=== PATIENT | male | born 1970 | race Two or more races ===

== ENCOUNTER 2020-02-05 06:39 | Inpatient (IN) | payer MEDICAID ==
[~2020-02-05] VITALS: Ht 170.2 cm; Wt 129.0 kg
[2020-02-05] VITALS (7 sets, daily range): BP systolic 120–133; BP diastolic 72–78
--- NOTE | 2020-02-05 06:45 | NUR ---
ED Nurse Note: Recieved pt BIBA from home, here with c/o trach dislodging, pt has trach in place, was scheduled to have removed sunday, pt states awakend and it was out, pt has no s/s of any respiratory distress, 02 sat=97%b on rom air, denies pain from area, no bleeding, pt has shiley size 5.0 with him, pt has large exploratory lap wound in mid abdomen with wound vac in place,s/p hernia repair mild pain from area at 09/23, denies cp, sob, or any other complaints, pt gowned and placed on cardiac monitoring, will resume care as ordered and closely monitor, respiratory therapist called.
--- NOTE | 2020-02-05 06:52 | Emergency Room Report ---
History of Present Illness General Chief Complaint: General Complaint Source: Patient, EMS (Nicholas Pham MD) Present Illness HPI Disclaimer: Please note that this report is being documented using DRAGON technology. This can lead to erroneous entry secondary to incorrect interpretation by the dictating instrument. HPI: 49-year-old male presents for dislodged tracheostomy tube. He has a large wound VAC over his abdomen from recent surgery and states a trach was placed as he goes apneic at night. Dislodged accidentally this morning. Patient brought in a Shiley #5 for replacement but said he had a Shiley 6 at his previous facility. Denies bleeding, difficulty breathing, recent fever, chills, vomiting or other changes in his health. PMH: Reviewed PSH: Tracheostomy, large abdominal hernia repair Allergies: Reviewed Social Hx: Reviewed (Nicholas Pham MD) Allergies: Coded Allergies: No Known Allergies (Unverified , 02/05/20) COVID-19 Screening Contact w/high risk pt: No Experienced COVID-19 symptoms?: No COVID-19 Testing performed VICE PRESIDENT QUALITY ASSURANCE: No (Nicholas Pham MD) Nursing Documentation-PMH Hx Cardiac Problems: Yes - hernia removal - wound vac in place Hx Hypertension: Yes Hx Diabetes: Yes (Nicholas Pham MD) Review of Systems All Other Systems: negative except mentioned in HPI (Nicholas Pham MD) Physical Exam Vital Signs Date Time Temp Pulse Resp B/P (MAP) Pulse Ox O2 Delivery O2 Flow Rate FiO2 02/05/20 06:35 97.3 81 20 146/89 (108) 99 Room Air General: Awake and alert, no acute distress HEENT: NC/AT. EOMI. Neck: Tracheostomy site is clean, no bleeding, no subcutaneous air in the neck Cardiovascular: RRR. S1 and S2 normal. Resp: Normal work of breathing. No cough, wheezing or crackles appreciated Abdomen: Abdomen is soft, morbidly obese. Wound VAC attached. No leaking. Skin: Intact. No abrasions, laceration or rash over the exposed skin MSK: Normal tone and bulk. Moving all extremities. No obvious deformity. Neuro: Awake and alert. Mentating appropriately. (Nicholas Pham MD) Medical Decision Making Diagnostic Impression: Primary Impression: Tracheostomy mechanical complication ER Course 49-year-old male presents for evaluation of dislodged tracheostomy tube. No acute distress, breathing comfortably saturating 99% on room air. No obvious trauma to the neck. I attempted to replace tracheostomy tube but unable to pass a Shiley #5 or #6. Unable to patient's PMD regarding his overall plan for the tracheostomy. Discussed case with our surgical team who will come evaluate the patient and provide guidance. Patient signed out to oncoming provider pending surgical evaluation. (Nicholas Pham MD) ER Course This patient was turned over to me from Dr. Pham. The patient had dislodged his trach tube. He apparently uses the trach tube at nighttime for obstructive sleep apnea. Dr. Pham was unable to replace the trach bedside. The patient was pending an evaluation by Dr. De Leon of general surgery. Dr. De Leon was delayed secondary to being in a surgery. He did see the patient in the emergency department and was also unable to replace the trach tube. Therefore, the patient was admitted to the ICU for respiratory monitoring and possible surgical trach replacement. This patient required complex medical decision-making, aggressive intervention, extensive laboratory workup and monitoring. Critical care time: 40 minutes. Laboratory Tests Test 02/05/20 16:00 White Blood Count 6.8 K/UL (4.8-10.8) Red Blood Count 4.46 M/UL (4.70-6.10) L Hemoglobin 13.0 G/DL (14.2-18.0) L Hematocrit 38.8 % (42.0-52.0) L Mean Corpuscular Volume 87 FL (80-99) Mean Corpuscular Hemoglobin 29.2 PG (27.0-31.0) Mean Corpuscular Hemoglobin Concent 33.6 G/DL (32.0-36.0) Red Cell Distribution Width 14.3 % (11.6-14.8) Platelet Count 204 K/UL (150-450) Mean Platelet Volume 8.6 FL (6.5-10.1) Neutrophils (%) (Auto) 67.0 % (45.0-75.0) Lymphocytes (%) (Auto) 18.3 % (20.0-45.0) L Monocytes (%) (Auto) 8.9 % (1.0-10.0) Eosinophils (%) (Auto) 5.1 % (0.0-3.0) H Basophils (%) (Auto) 0.8 % (0.0-2.0) Prothrombin Time 11.8 SEC (9.30-11.50) H Prothrombin Time INR 1.1 (0.9-1.1) Sodium Level 139 MMOL/L (136-145) Potassium Level 3.2 MMOL/L (3.5-5.1) L Chloride Level 101 MMOL/L (98-107) Carbon Dioxide Level 33 MMOL/L (21-32) H Anion Gap 5 mmol/L (5-15) Blood Urea Nitrogen 9 mg/dL (7-18) Creatinine 1.0 MG/DL (0.55-1.30) Estimated Glomerular Filtration Rate > 60 mL/min (>60) Glucose Level 103 MG/DL (74-106) Calcium Level 9.7 MG/DL (8.5-10.1) ([facility]. ) Last Vital Signs Date Time Temp Pulse Resp B/P (MAP) Pulse Ox O2 Delivery O2 Flow Rate FiO2 02/05/20 06:35 97.3 81 20 146/89 (108) 99 Room Air (Nicholas Pham MD) Nicholas Pham MD Feb 05, 2020 06:52 [facility]. Feb 05, 2020 18:46
--- NOTE | 2020-02-05 07:33 | NUR ---
HAND-OFF: Report given to JULIANA Florentino.
--- NOTE | 2020-02-05 11:29 | NUR ---
ED Nurse Note: [facility] number [phone]
[2020-02-05] MEDS ORDERED: METFORMIN HCL500 M1 ORAL (11:50)
[2020-02-05] MEDS ORDERED: HYDROCHLOROTH12.5 MG ORAL (11:50)
[2020-02-05] MEDS ORDERED: FAMOTIDINE20 MG ORAL (11:50)
[2020-02-05] MEDS ORDERED: AMLODIPINE BESYL5 MG ORAL (11:53)
[2020-02-05] MEDS ORDERED: DOCUSATE SODIU100 MG ORAL (11:53)
[2020-02-05] MEDS ORDERED: ACETAMINOPHEN325 M1 ORAL (11:53)
[2020-02-05] MEDS ORDERED: DULOXETINE HCL30 MG PO (11:53)
--- NOTE | 2020-02-05 13:49 | NUR ---
ED Nurse Note: Pt alert and ox4, ambulatory. No acute distress. Waiting for surgeon. Will cont to monitor.
--- NOTE | 2020-02-05 15:30 | NUR ---
ED Nurse Note: IV established and blood sent to lab.
[2020-02-05 16:16] LABS: BASOPHILS % (AUTO) 0.8 % (0.0-2.0); EOSINOPHILS % (AUTO) 5.1 % (0.0-3.0); HEMATOCRIT 38.8 % (42.0-52.0); LYMPHOCYTES % (AUTO) 18.3 % (20.0-45.0); MEAN CORPUSCULAR VOLUME 87 FL (80-99); MONOCYTES % (AUTO) 8.9 % (1.0-10.0); PLATELET COUNT 204 K/UL (150-450); RED BLOOD COUNT 4.46 M/UL (4.70-6.10); RED CELL DISTRIBUTION WIDTH 14.3 % (11.6-14.8); WHITE BLOOD COUNT 6.8 K/UL (4.8-10.8)
[2020-02-05 16:18] LABS: INR 1.1 (0.9-1.1)
[2020-02-05 16:22] LABS: ANION GAP 5 mmol/L (5-15); BLOOD UREA NITROGEN 9 mg/dL (7-18); CALCIUM 9.7 MG/DL (8.5-10.1); CARBON DIOXIDE 33 MMOL/L (21-32); CHLORIDE 101 MMOL/L (98-107); POTASSIUM 3.2 MMOL/L (3.5-5.1); SODIUM 139 MMOL/L (136-145)
[2020-02-05] MEDS ORDERED: Albuterol ud Inhalation HHN PRN (18:15)
[2020-02-05] MEDS ORDERED: Albuterol/Ipratropium 3ml neb HHN PRN (18:15)
[2020-02-05] MEDS ORDERED: Ipratropium 0.02% Inh Soln 2.5ml UD HHN PRN (18:15)
[2020-02-05] MEDS ORDERED: Mylanta II UD 30ml ORAL PRN (18:15)
[2020-02-05] MEDS ORDERED: Morphine Sulfate 2mg/ml Inj(IV/IM USE ONLY) IVP PRN (18:15)
[2020-02-05] MEDS ORDERED: LORazepam Inj 2mg/ml 1ml IV PRN (18:15)
--- NOTE | 2020-02-05 19:26 | NUR ---
HAND-OFF: Report given to Jonathon cody
--- NOTE | 2020-02-05 19:30 | NUR ---
ED Nurse Note: received patient from shailesh nickerson. patient resting inbed with no acute distress. reattached to monitor; vitals stable to baseline. discussed plan of care with patient; aware of pending admission.
--- NOTE | 2020-02-05 19:51 | NUR ---
ED Nurse Note: report given to sudheer nickerson. patient to be admitted to sdu 235 under the care of charis schmitz
--- NOTE | 2020-02-05 20:16 | History & Physical ---
History and Physical History & Physicial Johny Hopper MD Feb 05, 2020 20:16
--- NOTE | 2020-02-05 20:20 | NUR ---
TRANSFER TO FLOOR: Patient transferred to sdu 235-2 as ordered, per charis schmitz. Report given to sudheer nickerson. patient stable for transport. transferred to unit via gurney with rn and matthew. belongings and admission packet sent with patient.
--- NOTE | 2020-02-05 20:20 | NUR ---
NURSE NOTES: Received report from Jonathon Ackerman ED RN. Pt is transferred via gurney. Pt is alert and oriented x 4, japanese speaking, not in distress, denies pain. Peripheral IV 20G in right AC is patent and intact. Surgical wound is noted in midline abdomen and attached to wound vac. Pt is in room air and saturating 92% and higher. Vitals are stable. Bed is locked and in lowest position, bed alarm on , call light is within reach. Will continue to monitor the patient. Will continue with the plan of care.
--- NOTE | 2020-02-05 20:40 | NUR ---
NURSE NOTES: Dr Hopper made bedside rounds. Admitting orders are given to nurses. Will continue with the plan of care.
[2020-02-05] MEDS: D5 1/2NS w/KCl 20mEq 1,000 ML IV SCH (21:52)
[2020-02-05] MEDS: Heparin 5000 units/ml inj SUBQ SCH (22:06)
[2020-02-05] MEDS: DULoxetine 30mg cap ORAL SCH (22:07)
--- NOTE | 2020-02-05 22:30 | NUR ---
NURSE NOTES: Done giving pt's evening medication. Full body assessment done. Pt is tolerating room air saturating at 93% to 96%. Pt is resting comfortably in bed watching tv. Will continue to monitor pt.
--- NOTE | 2020-02-05 22:32 | Consultation ---
History of Present Illness General Date patient seen: Feb 05, 2020 Reason for Hospitalization: General Complaint Present Illness HPI 49-year-old male presents for dislodged tracheostomy tube. He has a large wound VAC over his abdomen from recent surgery and states a trach was placed as he goes apneic at night. Dislodged accidentally this morning and came to [facility] ED for evaluation. Patient brought in a Shiley #5 for replacement but said he had a Shiley 6 at his previous facility. Denies bleeding, difficulty breathing, recent fever, chills, vomiting or other changes in his health. prior large complex abd surgery for hernia now with VAC in place. states goes to clinic for changes and has home health come help him with vac. was planned for change today but missed his appointment Allergies: Coded Allergies: No Known Allergies (Unverified , 02/05/20) COVID-19 Screening Contact w/high risk pt: No Experienced COVID-19 symptoms?: No Medication History Scheduled Amlodipine Besylate* (Amlodipine Besylate*), 5 MG ORAL DAILY, (Reported) Docusate Sodium* (Docusate Sodium*), 100 MG ORAL TWICE A DAY, (Reported) Duloxetine HCl (Duloxetine HCl*), 50 MG PO DAILY, (Reported) Famotidine* (Pepcid 20mg tablet*), 20 MG ORAL DAILY, (Reported) Hydrochlorothiazide* (Hydrochlorothiazide*), 12.5 MG ORAL DAILY, (Reported) Metformin Hcl* (Metformin Hcl*), 500 MG ORAL TWICE A DAY, (Reported) Scheduled PRN Acetaminophen* (Acetaminophen 325MG Tablet*), 650 MG ORAL Q4H PRN for Pain Scale (3-5), (Reported) Patient History History Provided By: Patient Healthcare decision maker N Resuscitation status Advanced Directive on File Past Medical/Surgical History Past Medical/Surgical History: (1) Tracheostomy mechanical complication Review of Systems Review of Symptoms General ROS: no weight loss or fever Psychological ROS: no depression or mood changes, no memory loss Ophthalmic ROS: no visual changes or eye irritation ENT ROS: no nasal congestion, hearing loss, dizziness Allergy and Immunology ROS: no allergic symptoms or urticaria Hematological and Lymphatic ROS: no swollen glands, unusual bleeding or bruising Endocrine ROS: no polyuria, polydipsia, weight changes, temperature intolerance Respiratory ROS: no cough, shortness of breath, or wheezing Cardiovascular ROS: no chest pain or dyspnea on exertion Gastrointestinal ROS: denies abdominal pain, bright red blood in stool. Musculoskeletal ROS: no myalgias or arthralgias Neurological ROS: no TIA or stroke symptoms Dermatological ROS: no new or changing skin lesions, rashes or pruritis Physical Exam Physical Exam General appearance: alert, cooperative, no distress, appears stated age Head: Normocephalic, without obvious abnormality, atraumatic Eyes: conjunctivae/corneas clear. PERRL, EOM's intact. Fundi benign Throat: Lips, mucosa, and tongue normal. Teeth and gums normal Neck: supple, symmetrical, trachea midline, no adenopathy, thyroid: not enlarged, symmetric, no tenderness/mass/nodules, no carotid bruit and no JVD. trach site with granulation tissue Lungs: clear to auscultation bilaterally Heart: regular rate and rhythm, S1, S2 normal, no murmur, click, rub or gallop Abdomen: soft, non-tender. Bowel sounds normal. No masses, no organomegaly. large midline wound with vac Extremities: extremities normal, atraumatic, no cyanosis or edema Pulses: 2+ and symmetric Skin: Skin color, texture, turgor normal. No rashes or lesions Neurologic: Grossly normal Last 24 Hour Vital Signs Date Time Temp Pulse Resp B/P (MAP) Pulse Ox O2 Delivery O2 Flow Rate FiO2 02/05/20 20:20 97.3 95 16 120/75 99 Trach Collar 02/05/20 19:42 97.3 95 16 120/75 99 Trach Collar 02/05/20 18:06 97.3 76 16 124/78 99 Room Air 02/05/20 16:00 97.3 74 17 125/72 97 Room Air 02/05/20 13:52 97.3 73 16 128/73 98 Room Air 02/05/20 11:30 97.3 78 17 125/78 99 Room Air 02/05/20 09:11 97.3 83 18 129/74 97 Room Air 02/05/20 07:15 97.3 80 16 133/76 99 Room Air 02/05/20 06:45 81 20 Room Air 02/05/20 06:35 97.3 81 20 146/89 (108) 99 Room Air Laboratory Tests Test 02/05/20 16:00 White Blood Count 6.8 K/UL (4.8-10.8) Red Blood Count 4.46 M/UL (4.70-6.10) L Hemoglobin 13.0 G/DL (14.2-18.0) L Hematocrit 38.8 % (42.0-52.0) L Mean Corpuscular Volume 87 FL (80-99) Mean Corpuscular Hemoglobin 29.2 PG (27.0-31.0) Mean Corpuscular Hemoglobin Concent 33.6 G/DL (32.0-36.0) Red Cell Distribution Width 14.3 % (11.6-14.8) Platelet Count 204 K/UL (150-450) Mean Platelet Volume 8.6 FL (6.5-10.1) Neutrophils (%) (Auto) 67.0 % (45.0-75.0) Lymphocytes (%) (Auto) 18.3 % (20.0-45.0) L Monocytes (%) (Auto) 8.9 % (1.0-10.0) Eosinophils (%) (Auto) 5.1 % (0.0-3.0) H Basophils (%) (Auto) 0.8 % (0.0-2.0) Prothrombin Time 11.8 SEC (9.30-11.50) H Prothromb Time International Ratio 1.1 (0.9-1.1) Sodium Level 139 MMOL/L (136-145) Potassium Level 3.2 MMOL/L (3.5-5.1) L Chloride Level 101 MMOL/L (98-107) Carbon Dioxide Level 33 MMOL/L (21-32) H Anion Gap 5 mmol/L (5-15) Blood Urea Nitrogen 9 mg/dL (7-18) Creatinine 1.0 MG/DL (0.55-1.30) Estimat Glomerular Filtration Rate > 60 mL/min (>60) Glucose Level 103 MG/DL (74-106) Calcium Level 9.7 MG/DL (8.5-10.1) Microbiology Date/Time Source Procedure Growth Status 02/05/20 18:15 Rectum Received 02/05/20 18:15 Nasopharynx SARS-CoV-2 RdRp Gene Assay - Final Complete Height (Feet): 5 Height (Inches): 7.00 Weight (Pounds): 220 Medications Current Medications Medications (Trade) Dose Ordered Sig/Nick Route PRN Reason Start Time Stop Time Status Last Admin Dose Admin Acetaminophen (Tylenol) 650 mg Q4H PRN ORAL Temp >100.5 02/05/20 18:15 03/06/20 18:14 Al Hydroxide/Mg Hydroxide (Mylanta II) 30 ml Q6H PRN ORAL dyspepsia 02/05/20 18:15 03/06/20 18:14 Albuterol/ Ipratropium (Albuterol/ Ipratropium) 3 ml Q6H PRN HHN Shortness of Breath 02/05/20 18:15 02/10/20 18:14 Dextrose (Dextrose 50%) 25 ml Q30M PRN IV Hypoglycemia 02/05/20 18:15 05/05/20 18:14 Dextrose (Dextrose 50%) 50 ml Q30M PRN IV Hypoglycemia 02/05/20 18:15 05/05/20 18:14 Dextrose/ Electrolytes 1,000 ml @ 125 mls/hr Q8H IV 02/05/20 21:00 03/06/20 20:59 02/05/20 21:52 Diphenhydramine HCl (Benadryl) 25 mg Q6H PRN ORAL Itching/Pruritis 02/05/20 18:15 03/06/20 18:14 Duloxetine HCl (Cymbalta) 60 mg DAILY ORAL 02/05/20 22:00 05/06/20 08:59 02/05/20 22:07 Heparin Sodium (Porcine) (Heparin 5000 units/ml) 5,000 units EVERY 8 HOURS SUBQ 02/05/20 22:00 03/21/20 21:59 02/05/20 22:06 Hydrochlorothiazide (Hydrodiuril) 12.5 mg DAILY ORAL 02/06/20 09:00 03/07/20 08:59 Lorazepam (Ativan 2mg/ml 1ml) 0.5 mg Q4H PRN IV For Anxiety 02/05/20 18:15 02/12/20 18:14 Metformin HCl (Glucophage) 500 mg TWICE A DAY ORAL 02/06/20 09:00 03/07/20 08:59 Morphine Sulfate (Morphine Sulfate) 2 mg Q4H PRN IVP Moderate Pain (Pain Scale 4-6) 02/05/20 18:15 02/12/20 18:14 Ondansetron HCl (Zofran) 4 mg Q6H PRN IVP Nausea & Vomiting 02/05/20 18:15 03/06/20 18:14 Pantoprazole (Protonix) 40 mg DAILY IV 02/06/20 09:00 03/07/20 08:59 Assessment/Plan Problem List: (1) Tracheostomy mechanical complication Assessment & Plan: unable to safely place new trach at bedside in ED. too much resistance. lots of granulation tissue noted patient comfortable without respiratory compromise was told prior will plan for trach removal at some point but not sure when admit for monitoring plan vac change or dressings tomorrow may consider trach but not sure if needed given patient stable monitor overnight under observation thank you ICD Codes: J95.03 - Malfunction of tracheostomy stoma SNOMED: [id number], [id number] Jian De Leon Feb 05, 2020 22:32
[2020-02-06] VITALS: BP 129/80
--- NOTE | 2020-02-06 | NUR ---
NURSE NOTES: Pt sleeping in the bed. No acute distress noted at this time. Pt tolerating room air, saturating at 90-99%. Will continue to monitor.
--- NOTE | 2020-02-06 02:45 | History and Physical Report ---
DATE OF ADMISSION: 02/05/2020 CHIEF COMPLAINT: Tracheostomy tube dislodged. HISTORY OF PRESENT ILLNESS: This is a 49-year-old gentleman with past medical history significant for diabetes type 2, hypertension, abdominal surgery due to the large abdominal hernia repair, followed by the tracheostomy for treatment of obstructive sleep apnea, who presented to the emergency room after he had the tracheostomy tube dislodged. The patient had a large wound VAC in his abdominal area after repair of abdominal surgery, status post trach was placed and subsequently accidentally he dislodged the trach today in the morning. Shiley 5 for replacement, but said that he had a Shiley 6 at previous facility. He denies any bleeding. Denies any fever, chills, nausea, vomiting, or diarrhea. Shortly after initial evaluation, the patient was admitted to the hospital with tracheostomy tube dislodged. PAST MEDICAL HISTORY AND PAST SURGICAL HISTORY: As above. History of diabetes type 2, hypertension, tracheostomy due to obstructive sleep apnea, abdominal surgery for a ventral hernia repair on November 22, 2019, morbid obesity, status post a wound VAC. MEDICATIONS AT HOME: Refer to medication reconciliation. ALLERGIES: No known drug allergies. SOCIAL HISTORY: Denies any smoking, alcohol, or drugs. FAMILY HISTORY: Noncontributory. REVIEW OF SYSTEMS: Mostly as above. PHYSICAL EXAMINATION: VITAL SIGNS: On admission, temperature 97.3, pulse of 81, respirations 20, and blood pressure 146/89. GENERAL: The patient awake, responsive, in no acute distress. HEAD AND NECK: Pupils are reactive to light. Extraocular movements are intact. NECK: Supple. Tracheostomy site is intact. Tracheostomy was removed and site is clean without any discharge or bleeding. LUNGS: Clear. No wheeze, rhonchi, or rales. HEART: S1, S2. Regular rhythm. No murmur or gallops. Distant heart sounds. ABDOMEN: Soft, nondistended, nontender. Morbidly obese. Midline incision was noted due to the wound VAC. EXTREMITIES: No cyanosis, clubbing, or edema. NEUROLOGIC: Cranial nerves II through XII grossly intact. Motor is 5/5 in all extremities. Gait is intact. RECTAL AND GENITOURINARY: Refused and deferred. PSYCHIATRIC: Mood and affect is intact. LABORATORY DATA: Laboratory on admission from the emergency department, WBC of 6.8, hemoglobin 13, hematocrit 38, platelets is 204. Sodium 139, potassium 3.2, chloride 101, bicarb 33, BUN is 9, creatinine 1.0, GFR is greater than 60, glucose is 103, calcium is 9.7. PT of 11, PTT of 1.1. COVID-19 test is negative. ASSESSMENT: 1. Tracheostomy tube dislodged. 2. History of tracheostomy due to the sleep apnea. 3. Hypertension. 4. Diabetes type 2. 5. History of abdominal wall hernia repair, complicated with healing process of the wound, status post wound VAC. PLAN: Admit the patient to PCU. We will follow up with Dr. De Leon's consultation from Surgery. At this time, we will monitor patient for apnea episode. The patient has not been in any distress, actively talking without any complication. We will resume home medication. Monitor blood glucose levels. Code status is full code. DVT prophylaxis with a heparin subcutaneous. Johny Hopper M.D. DR: MURALI/ARIELLA JOB#: [id number] CC: JACKELINE
--- NOTE | 2020-02-06 03:00 | NUR ---
NURSE NOTES: Pt is asleep, snoring and laying flat in bed. Noted O2 saturation down at 85%, nonsustained, goes back up to 90-98%. Will continue to monitor the pt.
[2020-02-06 04:00] VITALS: BP 134/82
[2020-02-06 04:51] LABS: BASOPHILS % (AUTO) 1.1 % (0.0-2.0); HEMATOCRIT 41.5 % (42.0-52.0); HEMOGLOBIN 13.5 G/DL (14.2-18.0); LYMPHOCYTES % (AUTO) 22.4 % (20.0-45.0); MEAN CORPUSCULAR VOLUME 89 FL (80-99); MONOCYTES % (AUTO) 8.3 % (1.0-10.0); NEUTROPHILS % (AUTO) 63.2 % (45.0-75.0); PLATELET COUNT 214 K/UL (150-450); RED BLOOD COUNT 4.69 M/UL (4.70-6.10); RED CELL DISTRIBUTION WIDTH 14.5 % (11.6-14.8); WHITE BLOOD COUNT 7.2 K/UL (4.8-10.8)
[2020-02-06] MEDS: D5 1/2NS w/KCl 20mEq 1,000 ML IV SCH (05:10)
[2020-02-06 05:27] LABS: ALANINE AMINOTRANSFERASE 54 U/L (12-78); ALBUMIN 3.2 G/DL (3.4-5.0); ALBUMIN/GLOBULIN RATIO 0.9 (1.0-2.7); ALKALINE PHOSPHATASE 66 U/L (46-116); ANION GAP 9 mmol/L (5-15); ASPARTATE AMINO TRANSFERASE 39 U/L (15-37); BILIRUBIN,TOTAL 0.4 MG/DL (0.2-1.0); BLOOD UREA NITROGEN 9 mg/dL (7-18); CALCIUM 9.5 MG/DL (8.5-10.1); CARBON DIOXIDE 29 MMOL/L (21-32); CHLORIDE 101 MMOL/L (98-107); CREATININE 0.9 MG/DL (0.55-1.30); SODIUM 139 MMOL/L (136-145)
[2020-02-06] MEDS: Heparin 5000 units/ml inj SUBQ SCH ×3 (05:33→14:00)
--- NOTE | 2020-02-06 05:42 | NUR ---
NURSE NOTES: pt refused med, risks and benefits explained, still refused, med bottle and syringe disposed, witnessed by RN. Will continue to monitor.
[2020-02-06 05:46] LABS: PHOSPHORUS 4.4 MG/DL (2.5-4.9)
--- NOTE | 2020-02-06 07:30 | NUR ---
NURSE NOTES: Received pt from RN Cuco/Sherrie. pt is awake and alert, pt is in RA, no SOB or acute respiratory distress noted. pt is on continues heart monitoring. pt has intact iv access RAC 20G is running well. no complain of pain at this moment. Dr Hopper called and ordered to keep pt NPO and ordered KCL 40 PO once due to K 3, noted and carried out. all needs attended, bed is locked and is in the lowest position. call light within easy reach. will continue to monitor.
--- NOTE | 2020-02-06 07:32 | NUR ---
NURSE HAND-OFF REPORT: Important Events on Shift:new admission Patient Status: stable, full code Diet: consistent carb diet (low) Pending Orders: none Pending Results/Labs:none Pending MD notification:none Latest Vital Signs: Temperature 98.1 , Pulse 76 , B/P 134 /82 , Respiratory Rate 20 , O2 SAT 98 , Room Air, O2 Flow Rate . Vital Sign Comment: stable EKG Rhythm: Sinus Rhythm Rhythm change?: N MD Notified?: - MD Response: Latest Monroe Fall Score: 0 Fall Risk: Low Risk Safety Measures: Call light Within Reach, Bed Alarm Zone 1, Side Rails Side Rails x2, Bed position Low and Locked. Fall Precautions: Yellow Socks Report given to JULIANA Pinto.
[2020-02-06 08:00] VITALS: BP 125/89
--- NOTE | 2020-02-06 08:02 | NUR ---
NURSE NOTES: left a message to dr teixeira regarding patients diet order, patient stated that he is hungry. awaiting callback and new order.
--- NOTE | 2020-02-06 08:53 | NUR ---
CASE MANAGEMENT: INITIAL REVIEW 02/05/2020 49 YO M BIBA FROM HOME CC:DISLODGE TRACH PMHx: WOUND VAC TO ABDOMEN- HERNIA REMOVAL SI:TRACH TUBE DISLODGED. IS: DUONEB HHN X1 DEXTROSE BOLUS IV X1 PATIENT ADMITTED TO SDU 02/05/2020 @ 1837 DCP: HOME PLAN OF CARE: Monitor blood glucose levels consultation from Surgery CONCURRENT REVIEW FOR 02/06/2020 SI:Tracheostomy mechanical complication VS: T 97.7 HR 84 RR 18 B/P 125/89 SATS 100% ON RA LABS: K 3 AST 39 IS:NS @ 75 ML/HR GLUCOPHAGE PO BID PROTONIX IV QD HCTZ PO QD CYMBALTA PO QD KDUR PO X1 SDU DCP: HOME PLAN OF CARE PER SURGERY NPO MONITOR RESP STATUS unable to safely place new trach at bedside in ED. too much resistance. lots of granulation tissue noted patient comfortable without respiratory compromise was told prior will plan for trach removal at some point but not sure when plan vac change or dressings tomorrow may consider trach but not sure if needed given patient stable
[2020-02-06] MEDS ORDERED: Pantoprazole Inj IV SCH (09:00)
[2020-02-06] MEDS ORDERED: hydroCHLOROthiazide 12.5mg TAB ORAL SCH (09:00)
[2020-02-06] MEDS ORDERED: metFORMIN 500mg tab ORAL SCH (09:00)
[2020-02-06] MEDS ORDERED: DULoxetine 30mg cap ORAL SCH (09:00)
[2020-02-06] MEDS: DULoxetine 30mg cap ORAL SCH (09:35)
[2020-02-06] MEDS ORDERED: 1/2NS w/KCl 20mEq 1000ml 1,000 ML IV SCH (10:00)
--- NOTE | 2020-02-06 10:21 | Surgery Progress Note ---
Surgery Progress Note Subjective Symptoms: improved Additional Comments slept well no respiratory issues no n/v/f/c. labs okay had long discussion with patient at bedside. offer trach reinsertion but patient declined. states he has been okay without it and that he has BIPAP at home. he prefers to cont to resume his BIPAP rather than have a trach in place at this point. will plan vac change today resume diet d/c planning for today f/u with outpatient clinic he regularly goes to and home health for wound vac Objective Last 24 Hour Vital Signs Date Time Temp Pulse Resp B/P (MAP) Pulse Ox O2 Delivery O2 Flow Rate FiO2 02/06/20 08:00 97.7 84 18 125/89 (101) 100 02/06/20 07:49 92 02/06/20 04:00 Room Air 02/06/20 04:00 98.1 82 20 134/82 (99) 98 02/06/20 04:00 76 02/06/20 00:00 81 02/06/20 00:00 98.6 89 20 129/80 (96) 95 02/06/20 00:00 Room Air 02/05/20 20:58 Room Air 02/05/20 20:20 97.3 95 16 120/75 99 Trach Collar 02/05/20 19:42 97.3 95 16 120/75 99 Trach Collar 02/05/20 18:06 97.3 76 16 124/78 99 Room Air 02/05/20 16:00 97.3 74 17 125/72 97 Room Air 02/05/20 13:52 97.3 73 16 128/73 98 Room Air 02/05/20 11:30 97.3 78 17 125/78 99 Room Air I&O Intake and Output 02/05/20 02/06/20 19:00 07:00 Intake Total 0 ml 1266.667 ml Balance 0 ml 1266.667 ml Intake Oral 0 ml IV Total 1016.667 ml Other 250 ml # Voids 3 Dressing: dry Wound: clean Drains: wound vac Cardiovascular: RSR Respiratory: clear Abdomen: soft, non-tender, present bowel sounds, non-distended Extremities: no edema, no tenderness, no cyanosis Laboratory Tests Test 02/05/20 16:00 02/06/20 03:20 White Blood Count 6.8 K/UL (4.8-10.8) 7.2 K/UL (4.8-10.8) Red Blood Count 4.46 M/UL (4.70-6.10) L 4.69 M/UL (4.70-6.10) L Hemoglobin 13.0 G/DL (14.2-18.0) L 13.5 G/DL (14.2-18.0) L Hematocrit 38.8 % (42.0-52.0) L 41.5 % (42.0-52.0) L Mean Corpuscular Volume 87 FL (80-99) 89 FL (80-99) Mean Corpuscular Hemoglobin 29.2 PG (27.0-31.0) 28.7 PG (27.0-31.0) Mean Corpuscular Hemoglobin Concent 33.6 G/DL (32.0-36.0) 32.5 G/DL (32.0-36.0) Red Cell Distribution Width 14.3 % (11.6-14.8) 14.5 % (11.6-14.8) Platelet Count 204 K/UL (150-450) 214 K/UL (150-450) Mean Platelet Volume 8.6 FL (6.5-10.1) 9.3 FL (6.5-10.1) Neutrophils (%) (Auto) 67.0 % (45.0-75.0) 63.2 % (45.0-75.0) Lymphocytes (%) (Auto) 18.3 % (20.0-45.0) L 22.4 % (20.0-45.0) Monocytes (%) (Auto) 8.9 % (1.0-10.0) 8.3 % (1.0-10.0) Eosinophils (%) (Auto) 5.1 % (0.0-3.0) H 5.0 % (0.0-3.0) H Basophils (%) (Auto) 0.8 % (0.0-2.0) 1.1 % (0.0-2.0) Prothrombin Time 11.8 SEC (9.30-11.50) H Prothromb Time International Ratio 1.1 (0.9-1.1) Sodium Level 139 MMOL/L (136-145) 139 MMOL/L (136-145) Potassium Level 3.2 MMOL/L (3.5-5.1) L 3.0 MMOL/L (3.5-5.1) L Chloride Level 101 MMOL/L (98-107) 101 MMOL/L (98-107) Carbon Dioxide Level 33 MMOL/L (21-32) H 29 MMOL/L (21-32) Anion Gap 5 mmol/L (5-15) 9 mmol/L (5-15) Blood Urea Nitrogen 9 mg/dL (7-18) 9 mg/dL (7-18) Creatinine 1.0 MG/DL (0.55-1.30) 0.9 MG/DL (0.55-1.30) Estimat Glomerular Filtration Rate > 60 mL/min (>60) > 60 mL/min (>60) Glucose Level 103 MG/DL (74-106) 99 MG/DL (74-106) Calcium Level 9.7 MG/DL (8.5-10.1) 9.5 MG/DL (8.5-10.1) Phosphorus Level 4.4 MG/DL (2.5-4.9) Magnesium Level 1.8 MG/DL (1.8-2.4) Total Bilirubin 0.4 MG/DL (0.2-1.0) Aspartate Amino Transf (AST/SGOT) 39 U/L (15-37) H Alanine Aminotransferase (ALT/SGPT) 54 U/L (12-78) Alkaline Phosphatase 66 U/L (46-116) Total Protein 6.6 G/DL (6.4-8.2) Albumin 3.2 G/DL (3.4-5.0) L Globulin 3.4 g/dL Albumin/Globulin Ratio 0.9 (1.0-2.7) L Plan Problems: (1) Tracheostomy mechanical complication Assessment & Plan: unable to safely place new trach at bedside in ED. too much resistance. lots of granulation tissue noted patient comfortable without respiratory compromise was told prior will plan for trach removal at some point but not sure when admit for monitoring plan vac change or dressings tomorrow may consider trach but not sure if needed given patient stable monitor overnight under observation thank you had long discussion with patient at bedside. offer trach reinsertion but patient declined. states he has been okay without it and that he has BIPAP at home. he prefers to cont to resume his BIPAP rather than have a trach in place at this point. will plan vac change today resume diet d/c planning for today f/u with outpatient clinic he regularly goes to and home health for wound vac Jian De Leon Feb 06, 2020 10:21
--- NOTE | 2020-02-06 11:03 | NUR ---
NURSE NOTES: Dr De Leon visited pt and did change dressing for wound vac and trach, pt tolerated well. no bleeding or pain noted. MD ordered to D/C iv fluid, noted and carried out. will continue to monitor.
--- NOTE | 2020-02-06 11:26 | Operative Note - PDOC ---
Operative Note Operative Note Date of Operation/Procedure: Feb 06, 2020 Pre-op Diagnosis: Midline abdominal wound surgical incisional Procedure: Wound VAC change midline surgical wound abdominal Post-op Diagnosis: same as pre-op Surgeon: Jian De Leon MD Specimen: none Complications: none Condition: stable Estimated Blood Loss: none Drains: wound vac Implant(s) used?: No Description of Procedure Patient was made comfortable the bedside in supine position. Wound VAC was shut off. The prior dressings were removed. The wound was evaluated. There is a midline incisional wound site 15 cm in length. The superior and inferior portions of the wound is healed well but the midportion has an open area. There is some necrotic tissue identified as well as granulation tissue. About 90% of the wound has granulation tissue there is a small portion with necrotic tissue with the consent and the patient surgical scissors and forceps were used and a 1 cm x 1 cm area of nonviable necrotic eschar was excised underlying tissue was cleaned with gauze and ready for VAC placement the remainder of the tissue almost 500 for granulation. The incision inferior aspect proximal 5 cm is almost well-healed only 1 cm or less of granulation tissue healing and on the superior portion about 5 to 6 cm in a similar fashion. The midportion of the wound that is approximately 4 to 5 cm x 45 cm x 1 cm deep there is granulation tissue forming in the small area of eschar that was debrided. Wound was cleansed and borders were protected with the VAC tape. Following this Xeroform was placed on the inferior and superior edges followed by black foam on the midportion and on top of Xeroform for the other portions. VAC dressings were applied VAC was applied and suction well without leak. Jian De Leon Feb 06, 2020 11:26
--- NOTE | 2020-02-06 11:28 | Discharge Instructions ---
Discharge Instructions Discharge Instructions Follow up with: pcp and outpatient clinic he already goes to Call MD/Return to Hospital if: any concers, f/v/n/c Services at Discharge: home health services - patient has service already Diet: regular - DM diet Resume Normal Activity?: Yes Activity: resume normal activities, up ad derrick For Surgical Patients Dressing Care: may change For Congestive Heart Failure Reminder Report to your physician any weight gain of 5 pounds or more in one week. Jian De Leon Feb 06, 2020 11:28
[2020-02-06 12:00] VITALS: BP 136/89
--- NOTE | 2020-02-06 12:39 | NUR ---
DISCHARGE PLANNING: NOTE DC ORDER NOTED. PT IS FROM HOME CALL PLACED AND VM LEFT FOR [facility] REQUESTING A CALL BACK
--- NOTE | 2020-02-06 13:11 | Discharge Summary ---
Discharge Summary Hospital Course Date of Admission Feb 05, 2020 at 18:37 Date of Discharge Admitting Diagnosis tracheotomy tube dislodged HPI Vijay Bryant is a 49 year old male who was admitted on Feb 05, 2020 at 18:37 for Tracheotomy Tube Dislodged Hospital Course Discharge Discharge Vital Signs Last Vital Signs Date Time Temp Pulse Resp B/P (MAP) Pulse Ox O2 Delivery O2 Flow Rate FiO2 02/06/20 12:00 Room Air 02/06/20 12:00 98.1 71 20 136/89 (105) 98 Discharge Disposition Patient was discharged to Discharge Instructions Discharge Instructions Follow up with: pcp and outpatient clinic he already goes to Call MD/Return to Hospital if: any concers, f/v/n/c Services Upon Discharge: home health services - patient has service already Activity: resume normal activities, up ad derrick For Surgical Patients Dressing Care: may change Johny Hopper MD Feb 06, 2020 13:11
--- NOTE | 2020-02-06 13:24 | Consultation ---
History of Present Illness General Date patient seen: Feb 06, 2020 Chief Complaint: General Complaint Referring physician: Dr. De Leon, Dr. Stone Reason for Consultation: Tracheostomy wound Present Illness HPI This is a 49 year old man who previously had a tracheostomy placed. It dislodged and pt refused to have it placed back in. He states that he is able t o breathe without it and has BiPap at home. The old tracheostomy wound has been managed by Dr. De Leon with local wound care. Allergies: Coded Allergies: No Known Allergies (Unverified , 02/05/20) Medication History Scheduled Amlodipine Besylate* (Amlodipine Besylate*), 5 MG ORAL DAILY, (Reported) Docusate Sodium* (Docusate Sodium*), 100 MG ORAL TWICE A DAY, (Reported) Duloxetine HCl (Duloxetine HCl*), 50 MG PO DAILY, (Reported) Famotidine* (Pepcid 20mg tablet*), 20 MG ORAL DAILY, (Reported) Hydrochlorothiazide* (Hydrochlorothiazide*), 12.5 MG ORAL DAILY, (Reported) Metformin Hcl* (Metformin Hcl*), 500 MG ORAL TWICE A DAY, (Reported) Scheduled PRN Acetaminophen* (Acetaminophen 325MG Tablet*), 650 MG ORAL Q4H PRN for Pain Scale (3-5), (Reported) Patient History Healthcare decision maker N Resuscitation status Advanced Directive on File Physical Exam General Appearance: WD/WN, no apparent distress HEENT: normocephalic Physical Exam Narrative Pt has a healing tracheostomy site approximately 1cm in diameter with granulation tissue. No surrounding erythema. No sign of infection. Last 24 Hour Vital Signs Date Time Temp Pulse Resp B/P (MAP) Pulse Ox O2 Delivery O2 Flow Rate FiO2 02/06/20 12:00 Room Air 02/06/20 12:00 98.1 71 20 136/89 (105) 98 02/06/20 11:44 81 02/06/20 08:00 Room Air 02/06/20 08:00 97.7 84 18 125/89 (101) 100 02/06/20 07:49 92 02/06/20 04:00 Room Air 02/06/20 04:00 98.1 82 20 134/82 (99) 98 02/06/20 04:00 76 02/06/20 00:00 81 02/06/20 00:00 98.6 89 20 129/80 (96) 95 02/06/20 00:00 Room Air 02/05/20 20:58 Room Air 02/05/20 20:20 97.3 95 16 120/75 99 Trach Collar 02/05/20 19:42 97.3 95 16 120/75 99 Trach Collar 02/05/20 18:06 97.3 76 16 124/78 99 Room Air 02/05/20 16:00 97.3 74 17 125/72 97 Room Air 02/05/20 13:52 97.3 73 16 128/73 98 Room Air Intake and Output 02/05/20 02/06/20 19:00 07:00 Intake Total 0 ml 1266.667 ml Balance 0 ml 1266.667 ml Intake Oral 0 ml IV Total 1016.667 ml Other 250 ml # Voids 3 Laboratory Tests Test 02/05/20 16:00 02/06/20 03:20 White Blood Count 6.8 K/UL (4.8-10.8) 7.2 K/UL (4.8-10.8) Red Blood Count 4.46 M/UL (4.70-6.10) L 4.69 M/UL (4.70-6.10) L Hemoglobin 13.0 G/DL (14.2-18.0) L 13.5 G/DL (14.2-18.0) L Hematocrit 38.8 % (42.0-52.0) L 41.5 % (42.0-52.0) L Mean Corpuscular Volume 87 FL (80-99) 89 FL (80-99) Mean Corpuscular Hemoglobin 29.2 PG (27.0-31.0) 28.7 PG (27.0-31.0) Mean Corpuscular Hemoglobin Concent 33.6 G/DL (32.0-36.0) 32.5 G/DL (32.0-36.0) Red Cell Distribution Width 14.3 % (11.6-14.8) 14.5 % (11.6-14.8) Platelet Count 204 K/UL (150-450) 214 K/UL (150-450) Mean Platelet Volume 8.6 FL (6.5-10.1) 9.3 FL (6.5-10.1) Neutrophils (%) (Auto) 67.0 % (45.0-75.0) 63.2 % (45.0-75.0) Lymphocytes (%) (Auto) 18.3 % (20.0-45.0) L 22.4 % (20.0-45.0) Monocytes (%) (Auto) 8.9 % (1.0-10.0) 8.3 % (1.0-10.0) Eosinophils (%) (Auto) 5.1 % (0.0-3.0) H 5.0 % (0.0-3.0) H Basophils (%) (Auto) 0.8 % (0.0-2.0) 1.1 % (0.0-2.0) Prothrombin Time 11.8 SEC (9.30-11.50) H Prothromb Time International Ratio 1.1 (0.9-1.1) Sodium Level 139 MMOL/L (136-145) 139 MMOL/L (136-145) Potassium Level 3.2 MMOL/L (3.5-5.1) L 3.0 MMOL/L (3.5-5.1) L Chloride Level 101 MMOL/L (98-107) 101 MMOL/L (98-107) Carbon Dioxide Level 33 MMOL/L (21-32) H 29 MMOL/L (21-32) Anion Gap 5 mmol/L (5-15) 9 mmol/L (5-15) Blood Urea Nitrogen 9 mg/dL (7-18) 9 mg/dL (7-18) Creatinine 1.0 MG/DL (0.55-1.30) 0.9 MG/DL (0.55-1.30) Estimat Glomerular Filtration Rate > 60 mL/min (>60) > 60 mL/min (>60) Glucose Level 103 MG/DL (74-106) 99 MG/DL (74-106) Calcium Level 9.7 MG/DL (8.5-10.1) 9.5 MG/DL (8.5-10.1) Phosphorus Level 4.4 MG/DL (2.5-4.9) Magnesium Level 1.8 MG/DL (1.8-2.4) Total Bilirubin 0.4 MG/DL (0.2-1.0) Aspartate Amino Transf (AST/SGOT) 39 U/L (15-37) H Alanine Aminotransferase (ALT/SGPT) 54 U/L (12-78) Alkaline Phosphatase 66 U/L (46-116) Total Protein 6.6 G/DL (6.4-8.2) Albumin 3.2 G/DL (3.4-5.0) L Globulin 3.4 g/dL Albumin/Globulin Ratio 0.9 (1.0-2.7) L Microbiology Date/Time Source Procedure Growth Status 02/05/20 18:15 Rectum Received 02/05/20 18:15 Nasopharynx SARS-CoV-2 RdRp Gene Assay - Final Complete Height (Feet): 5 Height (Inches): 7.00 Weight (Pounds): 286 Medications Current Medications Medications (Trade) Dose Ordered Sig/Nick Route PRN Reason Start Time Stop Time Status Last Admin Dose Admin Acetaminophen (Tylenol) 650 mg Q4H PRN ORAL Temp >100.5 02/05/20 18:15 03/06/20 18:14 Al Hydroxide/Mg Hydroxide (Mylanta II) 30 ml Q6H PRN ORAL dyspepsia 02/05/20 18:15 03/06/20 18:14 Albuterol/ Ipratropium (Albuterol/ Ipratropium) 3 ml Q6H PRN HHN Shortness of Breath 02/05/20 18:15 02/10/20 18:14 Dextrose (Dextrose 50%) 25 ml Q30M PRN IV Hypoglycemia 02/05/20 18:15 05/05/20 18:14 Dextrose (Dextrose 50%) 50 ml Q30M PRN IV Hypoglycemia 02/05/20 18:15 05/05/20 18:14 Diphenhydramine HCl (Benadryl) 25 mg Q6H PRN ORAL Itching/Pruritis 02/05/20 18:15 03/06/20 18:14 Duloxetine HCl (Cymbalta) 60 mg DAILY ORAL 02/05/20 22:00 05/06/20 08:59 02/06/20 09:35 Heparin Sodium (Porcine) (Heparin 5000 units/ml) 5,000 units EVERY 8 HOURS SUBQ 02/05/20 22:00 03/21/20 21:59 02/05/20 22:06 Hydrochlorothiazide (Hydrodiuril) 12.5 mg DAILY ORAL 02/06/20 09:00 03/07/20 08:59 02/06/20 09:35 Lorazepam (Ativan 2mg/ml 1ml) 0.5 mg Q4H PRN IV For Anxiety 02/05/20 18:15 02/12/20 18:14 Metformin HCl (Glucophage) 500 mg TWICE A DAY ORAL 02/06/20 09:00 03/07/20 08:59 02/06/20 09:35 Morphine Sulfate (Morphine Sulfate) 2 mg Q4H PRN IVP Moderate Pain (Pain Scale 4-6) 02/05/20 18:15 02/12/20 18:14 Ondansetron HCl (Zofran) 4 mg Q6H PRN IVP Nausea & Vomiting 02/05/20 18:15 03/06/20 18:14 Pantoprazole (Protonix) 40 mg DAILY IV 02/06/20 09:00 03/07/20 08:59 02/06/20 09:35 Assessment/Plan Assessment/Plan: Pt with healing tracheostomy wound. Can treat the granulation tissue with silver nitrate to accelerate wound healing. Otherwise continue current wound care. Mayela Cannon MD Feb 06, 2020 13:24
--- NOTE | 2020-02-06 14:55 | NUR ---
NURSE NOTES: pt has D/C order, all discharge assessments and instructions done and pt verbally confirmed to understand all. pt is stable, V/S stable, all belongings are with pt, wound vac and trach dressing is intact. pt consumed 75% lunch and tolerated well. pt took off tele box, iv access D/C, waiting for to pick pt up. will continue to monitor.
--- NOTE | 2020-02-06 15:37 | NUR ---
NURSE NOTES: pt is stable, V/S stable, all belongings are with pt, RN took pt to the car by wheelchair, pt left hospital with accompany , son and daughter.
--- NOTE | 2020-02-06 21:30 | Discharge Summary ---
DATE OF ADMISSION: 02/05/2020 DATE OF DISCHARGE: 02/06/2020 This is a 49-year-old gentleman with past medical history significant for obstructive sleep apnea, status post tracheostomy, diabetes type 2, hypertension, abdominal surgery due to the large abdominal hernia repair, status post a wound VAC, who presented to the hospital after he had a tracheostomy tube dislodged. Shortly after initial evaluation, the patient was consulted with Dr. De Leon from Surgery. After further discussion, he did not want to have tracheostomy tube placed back. He stated that he has his own BiPAP at home and he was able to breathe without any difficulty and subsequently the patient was discharged home today to follow up with his primary physician and primary surgeon for wound care. FINAL DIAGNOSES: 1. Obstructive sleep apnea, status post tracheostomy. 2. Tracheostomy dislodged. 3. Morbid obesity. 4. Diabetes type 2. 5. Hypertension. 6. History of abdominal wall wound dehiscence. DISCHARGE MEDICATIONS: Continue discharge medication list. ACTIVITY: As tolerated. DIET: 2000 ADA cardiac diet. The patient will follow up with his primary physician and primary surgeon for further evaluation. I advised the patient to continue using the BiPAP at night for treatment of obstructive sleep apnea. Johny Hopper M.D. DR: NISHI JOB#: [id number] CC:
== END 2020-02-06 15:36 | disposition home health service (06) | DRG 143 ==
LOC: EDBD 06:39 → EMR 07:05 → EDBEDREQ 18:08 → 2W 18:37 → EDBEDREQSVC 19:24 → EDBEDREQ 19:24
DX: J95.03 Malfunction of tracheostomy stoma (principal); Z68.41 Body mass index [BMI] 40.0-44.9, adult; E66.01 Morbid (severe) obesity due to excess calories; Y83.8 Other surgical procedures as the cause of abnormal reaction of the patient, or of later complication, without mention of misadventure at the time of the procedure; I10 Essential (primary) hypertension; E11.9 Type 2 diabetes mellitus without complications; G47.33 Obstructive sleep apnea (adult) (pediatric)
CPT/HCPCS: 36415; 80048; 80053; 83735; 84100; 85025; 85610; 87081; 93005; 99291; J8499; U0002